=== PATIENT | male | born 1940 | race Caucasian/White ===

== ENCOUNTER 2016-12-05 07:53 | Inpatient (IN) | payer OTHER ==
[~2016-12-05] VITALS: Ht 162.6 cm; Wt 86.2 kg
[2016-12-05 08:22] LABS: PLATELET COUNT 252 x10^3mcL (130-400); RED CELL DISTRIBUTION WIDTH 14.4 % (11.5-14.5)
[2016-12-05 08:25] LABS: BASOPHIL % 0 % (0-2)
[2016-12-05 08:52] LABS: CALCIUM 8.3 mg/dL (8.5-10.1); CARBON DIOXIDE 21.9 mmol/L (21-32); CHLORIDE SERUM 95 mmol/L (98-107); CREATININE SERUM 2.3 mg/dL (0.7-1.3); GLUCOSE SERUM 118 mg/dL (74-106); POTASSIUM SERUM 4.3 mmol/L (3.5-5.1); SODIUM SERUM 128 mmol/L (136-145)
[2016-12-05] MEDS ORDERED: XOPENEX1.25 MG/3 IH (08:56)
[2016-12-05] MEDS ORDERED: LIPI20 PO (08:56)
[2016-12-05 08:57] LABS: ALKALINE PHOSPHATASE 145 U/L (46-116); ALT/SGPT 117 U/L (16-63); AST/SGOT 84 U/L (15-37); BILIRUBIN TOTAL 1.1 mg/dL (0.20-1.00); TOTAL PROTEIN, SERUM 6.7 g/dL (6.4-8.2)
[2016-12-05] MEDS ORDERED: LOSARTAN POTASS50 M1 PO (08:57)
[2016-12-05] MEDS ORDERED: HYDROCHLOROTHIA25 MG PO (08:57)
[2016-12-05] MEDS ORDERED: CAPSAICIN0.075% (08:57)
[2016-12-05 08:58] LABS: ALBUMIN 2.3 g/dL (3.4-5.0)
[2016-12-05 09:01] LABS: CK-MB 0.9 ng/mL (0-3.6)
[2016-12-05 09:02] LABS: FREE T4 1.59 ng/dL (0.76-1.46); FREE THYROXINE INDEX 2.3 ug/dL (1.4-4.5); T4(THYROXINE) 6.8 ug/dL (4.7-13.3)
[2016-12-05 09:11] LABS: C REACTIVE PROTEIN 18.8 mg/dL (<=0.9)
[2016-12-05 10:12] LABS: ERYTHROCYTE SED RATE > 120 mm/hr (0-20)
[2016-12-05 10:38] LABS: UA SPECIFIC GRAVITY <=1.005 (1.005-1.035); microscopic required? YES; urine erythrocyte 1+ (NEGATIVE)
[2016-12-05 13:25] LABS: T3 TOTAL 0.44 ng/mL
[2016-12-05 15:46] VITALS: BP 89/49
[2016-12-05 17:48] VITALS: BP 95/53
[2016-12-05 20:41] VITALS: BP 119/71
[2016-12-06 05:40] VITALS: BP 90/52
[2016-12-06 06:32] LABS: CALCIUM 7.6 mg/dL (8.5-10.1); CARBON DIOXIDE 19.5 mmol/L (21-32); CHLORIDE SERUM 105 mmol/L (98-107); CREATININE SERUM 1.2 mg/dL (0.7-1.3); GLUCOSE SERUM 108 mg/dL (74-106); POTASSIUM SERUM 4.2 mmol/L (3.5-5.1); SODIUM SERUM 136 mmol/L (136-145)
[2016-12-06 06:47] LABS: PLATELET COUNT 203 x10^3mcL (130-400)
[2016-12-06 06:55] LABS: BASOPHIL % 0 % (0-2); RED CELL DISTRIBUTION WIDTH 14.6 % (11.5-14.5)
[2016-12-06 08:40] VITALS: BP 107/65
[2016-12-06 16:23] VITALS: BP 107/72
[2016-12-06 21:20] VITALS: BP 122/74
[2016-12-07 05:28] VITALS: BP 106/67
[2016-12-07 06:12] LABS: PLATELET COUNT 201 x10^3mcL (130-400); RED CELL DISTRIBUTION WIDTH 14.5 % (11.5-14.5)
[2016-12-07 06:16] LABS: BASOPHIL % 0 % (0-2)
[2016-12-07 06:34] LABS: CALCIUM 7.8 mg/dL (8.5-10.1); CARBON DIOXIDE 22.5 mmol/L (21-32); CHLORIDE SERUM 107 mmol/L (98-107); GLUCOSE SERUM 112 mg/dL (74-106); POTASSIUM SERUM 4.2 mmol/L (3.5-5.1); SODIUM SERUM 139 mmol/L (136-145)
[2016-12-07 08:40] VITALS: BP 148/83
[2016-12-07 10:22] VITALS: BP 139/85
[2016-12-07 14:08] VITALS: BP 148/83
[2016-12-07 17:42] VITALS: BP 157/85
[2016-12-07 22:03] VITALS: BP 153/94
[2016-12-08] VITALS (7 sets, daily range): BP systolic 124–169; BP diastolic 77–96
[2016-12-08 07:50] LABS: BASOPHIL % 0.1 % (0-2); PLATELET COUNT 259 x10^3mcL (130-400)
[2016-12-08 07:54] LABS: RED CELL DISTRIBUTION WIDTH 14.9 % (11.5-14.5)
[2016-12-08 08:16] LABS: CALCIUM 8.3 mg/dL (8.5-10.1); CARBON DIOXIDE 23.4 mmol/L (21-32); CHLORIDE SERUM 101 mmol/L (98-107); CREATININE SERUM 0.8 mg/dL (0.7-1.3); GLUCOSE SERUM 108 mg/dL (74-106); POTASSIUM SERUM 3.6 mmol/L (3.5-5.1); SODIUM SERUM 134 mmol/L (136-145)
[2016-12-09 02:33] VITALS: BP 136/86
[2016-12-09 05:40] VITALS: BP 126/85
[2016-12-09 08:23] VITALS: BP 139/99
[2016-12-09 12:57] VITALS: BP 122/90
[2016-12-09 13:42] VITALS: BP 122/90
[2016-12-09 17:32] VITALS: BP 127/79
== END 2016-12-09 20:14 | disposition other institution (70) | DRG 871 ==
LOC: ED 07:53 → DU 09:06
PROVIDERS: Specialist; ADMIT Internal Medicine
DX: A40.8 Other streptococcal sepsis (principal); R65.21 Severe sepsis with septic shock; N17.9 Acute kidney failure, unspecified; D68.9 Coagulation defect, unspecified; E86.0 Dehydration; D64.9 Anemia, unspecified; J44.9 Chronic obstructive pulmonary disease, unspecified; N18.9 Chronic kidney disease, unspecified; E78.5 Hyperlipidemia, unspecified; H40.9 Unspecified glaucoma; I12.9 Hypertensive chronic kidney disease with stage 1 through stage 4 chronic kidney disease, or unspecified chronic kidney disease; Z95.0 Presence of cardiac pacemaker; Z88.8 Allergy status to other drugs, medicaments and biological substances; Z71.6 Tobacco abuse counseling
CPT/HCPCS: 83880; 84439; 87046; 87046-59; J1956; J3430; J3490; J7030; J7620; Q0092